=== PATIENT | male | born 1995 | race Caucasian/White ===

== ENCOUNTER 2021-05-24 21:59 | Emergency (ER) | payer BC, OTHER ==
[2021-05-24] MEDS ORDERED: Lorazepam 2 MG/ML VIAL ONE (22:33)
[2021-05-24] MEDS ORDERED: diphenhydrAMINE 50 MG/ML VIAL ONE (22:33)
[2021-05-24 23:20] LABS: #Eosinphils 0.1 thou/uL (0.0-0.7); #Lymphocytes 2.1 thou/uL (1.20-3.40); #Monocytes 0.6 thou/uL (0.11-0.59); #Neutrophils 4.1 thou/uL (1.40-6.50); %Basophils 0.6 % (0.0-1.0); %Lymphocytes 30.4 % (21.0-51.0); Hemoglobin 12.8 g/dL (14.0-18.0); Mean Corpuscular HGB CONC 34.6 g/dL (32.0-36.0); Mean Corpuscular Hemoglobin 30.1 pg (27.0-31.0); Mean Corpuscular Volume 87.1 fL (78.0-98.0); Mean Platelet Volume 7.5 fL (7.4-10.4); Platelet Count 188 thou/uL (130-400); RBC Distribution Width 11.6 % (11.5-14.5); Red Blood Cell (RBC) Count 4.23 mill/uL (4.70-6.10); White Blood Cell (WBC) Count 6.8 thou/uL (4.8-10.8)
[2021-05-24 23:39] LABS: ALT (SGPT) 10 U/L (8-55); AST (SGOT) 18 U/L (5-34); Acetaminophen Less than 6.0 mcg/mL (10.0-30.0); Albumin 3.8 g/dL (3.5-5.0); Alcohol Less than 10 mg/dL (Less than 10); Alkaline Phosphatase 67 U/L (40-110); Anion Gap 11 mmol/L (10-20); BUN (Urea Nitrogen) 17 mg/dL (8.9-20.6); Bilirubin, Total 0.4 mg/dL (0.2-1.2); CK (CPK) 149 U/L (30-200); Calc. Creatinine Clearance 0 mL/min (70-130); Carbon Dioxide 24 mmol/L (22-29); Chloride 107 mmol/L (98-107); Globulin 2.5 g/dL (2.4-3.5); Glucose 98 mg/dL (70-105); Potassium 4.4 mmol/L (3.5-5.1); Protein, Total 6.3 g/dL (6.0-8.3); Salicylate Less than 8.0 mg/dL (15.0-30.0); Sodium 138 mmol/L (136-145)
[2021-05-25] MEDS ORDERED: Haloperidol Lactate 5 MG/ML VIAL ONE (00:03)
[2021-05-25 00:28] LABS: Bilirubin Negative (Negative); Blood, Urine Negative (Negative); Clarity Clear (Clear); Glucose, Urine (Dipstick) Normal (Negative); Ketone, Urine Negative (Negative); Leukocyte Negative Leu/uL (Negative); Nitrite Negative (Negative); Protein, Urine (Dipstick) Negative (Neg-Trace); Specific Gravity, Urine 1.012 (1.002-1.036); Urobilinogen Normal mg/dL (Less than 2)
[2021-05-25 00:36] LABS: Amphetamine Not Detected (NotDetected); Barbiturates Screen Not Detected (NotDetected); Benzodiazepine Screen Not Detected (NotDetected); Cocaine Metabolite Screen Not Detected (NotDetected); Methadone Not Detected (NotDetected); Methamphetamine Not Detected (NotDetected); Opiate Screen Not Detected (NotDetected); Oxycodone Screen Not Detected (NotDetected); Phencyclidine (PCP) Not Detected (NotDetected); THC/Cannabinoid Screen Detected (NotDetected); Tricyclic Screen Not Detected (NotDetected)
== END 2021-05-25 01:25 | disposition home or self-care (01) ==
LOC: ERS 21:59
DX: E86.0 Dehydration (principal); R25.3 Fasciculation
CPT/HCPCS: 36415; 80053; 80306; 80307; 81003; 82550; 84146; 84443; 85025; 93005; 96374; 96375; J1200; J1630; J2060

== ENCOUNTER 2024-05-21 16:14 | Outpatient (CLI) | payer OTHER | END 2024-05-21 16:15 | disposition home or self-care (01) | LOC: CT 16:14 | PROVIDERS: ATTEND Physician Assistant | DX: S92.145A Nondisplaced dome fracture of left talus, initial encounter for closed fracture (principal); S82.432A Displaced oblique fracture of shaft of left fibula, initial encounter for closed fracture; Z98.890 Other specified postprocedural states ==